=== PATIENT | female | born 1950 | race Caucasian/White ===

== ENCOUNTER 2017-10-19 18:18 | Emergency (ER) | payer SELFPAY ==
[~2017-10-19] VITALS: Ht 157.5 cm; Wt 61.0 kg
[2017-10-19] MEDS ORDERED: CAPT25TA3 PO (18:56)
[2017-10-19] MEDS ORDERED: HYDR10TA31 PO (18:56)
[2017-10-19] MEDS ORDERED: KETOROLAC TROMETHAMINE 60 MG/2 ML VIAL IM ONE (19:30)
[2017-10-19] MEDS ORDERED: METHOCARBAMOL 500 MG TABLET PO ONE (19:30)
[2017-10-19 21:46] VITALS: BP 108/78
== END 2017-10-19 21:50 | disposition home or self-care (01) ==
LOC: EMS 18:18
DX: S30.0XXA Contusion of lower back and pelvis, initial encounter (principal); S80.02XA Contusion of left knee, initial encounter; S70.02XA Contusion of left hip, initial encounter; Z88.2 Allergy status to sulfonamides; W19.XXXA Unspecified fall, initial encounter; Y93.89 Activity, other specified; Y92.811 Bus as the place of occurrence of the external cause; Y99.8 Other external cause status
CPT/HCPCS: 72100; 73503; 96372; 99284; J1885